=== PATIENT | male | born 1970 | race Two or more races ===

== ENCOUNTER 2025-04-07 17:27 | Emergency (ER) | payer OTHER ==
[~2025-04-07] VITALS: Ht 177.8 cm; Wt 81.6 kg
[2025-04-07] MEDS ORDERED: COZAAR50 MG PO (18:20)
[2025-04-07] MEDS ORDERED: CLINDAMYCIN PHOSPHATE 150 MG/ML (600mg) IV ONE (20:15)
[2025-04-07] MEDS ORDERED: KETOROLAC TROMETHAMINE 60 MG VIAL IM ONE (20:15)
[2025-04-07] MEDS ORDERED: INTESTINEX680 M1 PO (21:26)
[2025-04-07] MEDS ORDERED: CLEOCIN HCL300 MG PO (21:26)
== END 2025-04-07 21:31 | disposition home or self-care (01) ==
LOC: ER 18:41
DX: S81.021A Laceration with foreign body, right knee, initial encounter (principal); W26.8XXA Contact with other sharp object(s), not elsewhere classified, initial encounter; Y93.89 Activity, other specified; Y92.89 Other specified places as the place of occurrence of the external cause; Z88.0 Allergy status to penicillin; I10 Essential (primary) hypertension

== ENCOUNTER 2025-04-16 11:53 | Emergency (ER) | payer OTHER ==
[~2025-04-16] VITALS: Ht 167.6 cm; Wt 108.9 kg
[~2025-04-16 11:53] MED LIST: CLEOCIN HCL300 MG PO; COZAAR50 MG PO; INTESTINEX680 M1 PO
== END 2025-04-16 13:19 | disposition home or self-care (01) ==
LOC: ER 11:53
DX: Z48.02 Encounter for removal of sutures (principal); T14.8XXA Other injury of unspecified body region, initial encounter; Z88.0 Allergy status to penicillin